=== PATIENT | female | born 1955 | race Caucasian/White ===

== ENCOUNTER → 2024-02-25 10:46 | Outpatient (REF) | payer MEDICARE, OTHER, SELFPAY | LOC: RAD 10:46 | PROVIDERS: ATTENDING PHYSICIAN Emergency Medicine | DX: J22 Unspecified acute lower respiratory infection (principal) | CPT/HCPCS: 71046 ==

== ENCOUNTER → 2024-04-14 14:33 | Outpatient (REF) | payer MEDICARE, OTHER, SELFPAY | LOC: RAD 14:33 | PROVIDERS: ATTENDING PHYSICIAN Emergency Medicine | DX: R05.1 Acute cough (principal) | CPT/HCPCS: 71046 ==

== ENCOUNTER → 2024-11-11 08:06 | Outpatient (REF) | payer MEDICARE, OTHER, SELFPAY | LOC: RAD 08:06 | PROVIDERS: ATTENDING PHYSICIAN Emergency Medicine; OTHER PHYSICIAN Nurse Practitioner Adult Health | DX: N95.1 Menopausal and female climacteric states (principal); M85.89 Other specified disorders of bone density and structure, multiple sites | CPT/HCPCS: 77080 ==

== ENCOUNTER → 2024-11-24 07:45 | Outpatient (REF) | payer MEDICARE, OTHER, SELFPAY | LOC: RAD 07:45 | PROVIDERS: ATTENDING PHYSICIAN Emergency Medicine | DX: E04.1 Nontoxic single thyroid nodule (principal) | CPT/HCPCS: 76536 ==

== ENCOUNTER → 2025-01-18 14:55 | Outpatient (REF) | payer MEDICARE, OTHER, SELFPAY | LOC: WDC 14:55 | PROVIDERS: ATTENDING PHYSICIAN Emergency Medicine | DX: Z12.31 Encounter for screening mammogram for malignant neoplasm of breast (principal) | CPT/HCPCS: 77063; 77067 ==

== ENCOUNTER → 2025-09-15 14:45 | Outpatient (REF) | payer MEDICARE, OTHER, SELFPAY | LOC: WDC 14:45 | PROVIDERS: ATTENDING PHYSICIAN Emergency Medicine | DX: R92.333 Mammographic heterogeneous density, bilateral breasts (principal) | CPT/HCPCS: 76641 ==